=== PATIENT | male | born 1960 | race Caucasian/White ===

== ENCOUNTER 2017-07-01 15:02 | Observation (INO) | payer MEDICAID ==
[~2017-07-01] VITALS: Ht 177.8 cm; Wt 136.1 kg
[~2017-07-01 15:02] MED LIST: CYCL10TA9 PO; METO50TA7 PO; NAPR-243 PO
[2017-07-01] MEDS ORDERED: NS IV 1000 ML 1,000 ML IV SCH (15:30)
--- NOTE | 2017-07-01 15:39 | ED Psychosocial ---
General Chief Complaint: Substance Abuse Stated Complaint: DETOX Nursing Triage Note: Pt presents obviously intoxicated. Family with him for treatment. Pt obnoxious, staggering, and unable to bear weight. Source: patient, family Exam Limitations: intoxication History of Present Illness Date Seen by Provider: Jul 01, 2017 Time Seen by Provider: 15:33 Initial Comments This 57-year-old white male presents in a markedly intoxicated state accompanied by his family. The patient has been drinking heavily for the last 5 days. Patient has a long-standing history of alcohol and narcotic drug abuse. Patient's family believe the patient needs treatment and a hospitalized environment for his addictions. Patient is markedly intoxicated. His speech is difficult to understand as it is slurred. The patient behaves in an aggressive fashion without provocation. The patient has agreed to initial evaluation in the emergency department. Allergies and Home Medications Allergies Coded Allergies: No Known Drug Allergies (Unverified , 09/16/11) Home Medications Cyclobenzaprine Hcl 10 Mg Tablet, 1 EACH PO BID Prescribed by: BRITTANY SMITH on 09/16/11 1000 Metoprolol Succinate 50 Mg Tab.sr.24h, 1 EACH PO DAILY Prescribed by: BRITTANY SMITH on 09/16/11 1059 Naproxen 500 Mg Tablet, 1 EACH PO BID - TID PRN Prescribed by: BRITTANY SMITH on 09/16/11 1000 Patient Home Medication List Home Medication List Reviewed: Yes Constitutional: No chills, No fever EENTM: No hearing loss, No eye pain, No nose pain Respiratory: No cough, No short of breath Cardiovascular: No chest pain, No edema, No palpitations, No syncope Gastrointestinal: No abdominal pain, No hematemesis, No vomiting Genitourinary: no symptoms reported Musculoskeletal: no symptoms reported Skin: no symptoms reported, other (patient has multiple abrasions on his extremities. The family states this is due to his frequent falls. The patient had a fall in the emergency department for any was trying to use his bed.) Psychiatric/Neurological: See HPI, Weakness (patient also has some weakness in his lower extremities from previous disc disease and past back surgery.) Past Mvozsgc-Bipnom-Rwsvcf Hx Patient Social History Alcohol Use: Regular Use Alcohol Beverage of Choice: Beer Recreational Drug Use: No Smoking Status: Current Everyday Smoker Recent Foreign Travel: No Contact w/Someone Who Travel: No Recent Infectious Disease Expo: No Family Medical History Reviewed Nursing Family Hx Physical Exam Vital Signs Vital Signs - First Documented 07/01/17 15:16 Temp 95.9 Pulse 110 Resp 20 B/P (MAP) 177/107 (130) Pulse Ox 94 O2 Delivery Room Air Capillary Refill : Less Than 3 Seconds General Appearance: obese HEENT: normal ENT inspection Neck: normal inspection Respiratory: lungs clear Cardiovascular: regular rate, rhythm Gastrointestinal: normal bowel sounds, non tender Genital/Rectal: normal rectal tone Extremities: non-tender Neurologic/Psychiatric: no motor/sensory deficits, alert, normal mood/affect Appearance/Memory: disheveled, other (patient is markedly intoxicated. Patient is cursing and acting out against the staff.) Thoughts/Hallucinations: no apparent hallucination Skin: normal color, warm/dry Progress/Results/Core Measures Lab Results Laboratory Tests Test 07/01/17 16:10 07/01/17 16:15 Range/Units Urine Color YELLOW Urine Clarity CLEAR Urine pH 6 5-9 Urine Specific [place] 1.010 L 1.016-1.022 Urine Protein 1+ H NEGATIVE Urine Glucose (UA) NEGATIVE NEGATIVE Urine Ketones NEGATIVE NEGATIVE Urine Nitrite NEGATIVE NEGATIVE Urine Bilirubin NEGATIVE NEGATIVE Urine Urobilinogen NORMAL NORMAL MG/DL Urine Leukocyte Esterase 2+ H NEGATIVE Urine RBC (Auto) NEGATIVE NEGATIVE Urine Opiates Screen POSITIVE H NEGATIVE Urine Oxycodone Screen NEGATIVE NEGATIVE Urine Methadone Screen NEGATIVE NEGATIVE Urine Propoxyphene Screen NEGATIVE NEGATIVE Urine Barbiturates Screen NEGATIVE NEGATIVE Ur Tricyclic Antidepressants Screen NEGATIVE NEGATIVE Urine Phencyclidine Screen NEGATIVE NEGATIVE Urine Amphetamines Screen NEGATIVE NEGATIVE Urine Methamphetamines Screen NEGATIVE NEGATIVE Urine Benzodiazepines Screen NEGATIVE NEGATIVE Urine Cocaine Screen NEGATIVE NEGATIVE Urine Cannabinoids Screen POSITIVE H NEGATIVE White Blood Count 5.0 4.3-11.0 10^3/uL Red Blood Count 5.12 4.35-5.85 10^6/uL Hemoglobin 17.3 13.3-17.7 G/DL Hematocrit 50 40-54 % Mean Corpuscular Volume 98 80-99 FL Mean Corpuscular Hemoglobin 34 25-34 PG Mean Corpuscular Hemoglobin Concent 35 32-36 G/DL Red Cell Distribution Width 13.7 10.0-14.5 % Platelet Count 191 130-400 10^3/uL Mean Platelet Volume 8.5 7.4-10.4 FL Neutrophils (%) (Auto) 62 42-75 % Lymphocytes (%) (Auto) 24 12-44 % Monocytes (%) (Auto) 13 H 0-12 % Eosinophils (%) (Auto) 0 0-10 % Basophils (%) (Auto) 0 0-10 % Neutrophils # (Auto) 3.1 1.8-7.8 X 10^3 Lymphocytes # (Auto) 1.2 1.0-4.0 X 10^3 Monocytes # (Auto) 0.7 0.0-1.0 X 10^3 Eosinophils # (Auto) 0.0 0.0-0.3 10^3/uL Basophils # (Auto) 0.0 0.0-0.1 10^3/uL Sodium Level 139 135-145 MMOL/L Potassium Level 4.2 3.6-5.0 MMOL/L Chloride Level 105 98-107 MMOL/L Carbon Dioxide Level 20 L 21-32 MMOL/L Anion Gap 14 5-14 MMOL/L Blood Urea Nitrogen 6 L 7-18 MG/DL Creatinine 0.90 0.60-1.30 MG/DL Estimat Glomerular Filtration Rate > 60 BUN/Creatinine Ratio 7 Glucose Level 120 H 70-105 MG/DL Calcium Level 8.9 8.5-10.1 MG/DL Total Bilirubin 0.4 0.1-1.0 MG/DL Aspartate Amino Transf (AST/SGOT) 42 H 5-34 U/L Alanine Aminotransferase (ALT/SGPT) 30 0-55 U/L Alkaline Phosphatase 151 H 40-136 U/L Total Protein 7.5 6.4-8.2 GM/DL Albumin 4.2 3.2-4.5 GM/DL Salicylates Level < 5.0 L 5.0-20.0 MG/DL Acetaminophen Level < 10 L 10-30 UG/ML Serum Alcohol 383 *H <10 MG/DL My Orders Orders - MESSI BOWMAN MD Cbc With Automated Diff (07/01/17 15:22) Comprehensive Metabolic Panel (07/01/17 15:) Alcohol (07/01/17 15:22) Salicylate (07/01/17 15:22) Acetaminophen (07/01/17 15:22) Drug Screen Stat (Urine) (07/01/17 15:) Urinalysis Dipstick Only (07/01/17 15:) Ekg Tracing (4/13/18 15:22) Chest 1 View, Ap/Pa Only (07/01/17 15:22) Ns Iv 1000 Ml (Sodium Chloride 0.9%) (07/01/17 15:30) Vital Signs/I&O 07/01/17 15:16 Temp 95.9 Pulse 110 Resp 20 B/P (MAP) 177/107 (130) Pulse Ox 94 O2 Delivery Room Air Blood Pressure Mean: 130 Progress Note : Time: 17:01 Progress Note Patient's ETOH was approx 350. The patient was unable to walk or stand. Dr. Smith was kind enough to admit the patient for detox. A bed was arranged with a sitter. Ativan was ordered for anticipated agitation. Departure Communication (Admissions) Time/Spoke to Admitting Phy: 17:05 Dr. Smith Impression Primary Impression: Alcohol abuse Disposition: ADMITTED INPATIENT Condition: Unchanged Admissions Decision to Admit Reason: Admit from ER (General) Decision to Admit/Date: Jul 01, 2017 Time/Decision to Admit Time: 17:04 Departure-Patient Inst. Referrals: NO,LOCAL PHYSICIAN (PCP/Family) Primary Care Physician Patient Instructions: ALCOHOL AND SUBSTANCE ABUSE MESSI BOWMAN MD Jul 01, 2017 15:39
--- NOTE | 2017-07-01 15:56 | Diagnostic Imaging Report ---
INDICATION: Detoxification. Frontal chest obtained at 3:48 p.m. FINDINGS: There is cardiomegaly with tortuous aorta. There is no significant infiltrate. There is no pneumothorax or pleural fluid. There is poor inspiration. IMPRESSION: Cardiomegaly and tortuous aorta with no focal infiltrate or pneumothorax or pleural fluid. Dictated by: Dictated on workstation # [id number]
[2017-07-01 16:24] LABS: BILIRUBIN,URINE NEGATIVE (NEGATIVE); CLARITY,URINE CLEAR; COLOR,URINE YELLOW; GLUCOSE, URINE (UA) NEGATIVE (NEGATIVE); KETONES,URINE NEGATIVE (NEGATIVE); LEUKOCYTE ESTERASE ,URINE 2+ (NEGATIVE); NITRITE,URINE NEGATIVE (NEGATIVE); PH,URINE 6 (5-9); PROTEIN,URINE 1+ (NEGATIVE); UROBILINOGEN,URINE NORMAL (NORMAL)
[2017-07-01 16:28] LABS: BASOPHILS % (AUTO) 0 % (0-10); EOSINOPHILS % (AUTO) 0 % (0-10); HEMATOCRIT 50 % (40-54); HEMOGLOBIN 17.3 G/DL (13.3-17.7); LYMPHOCYTES # (AUTO) 1.2 X 10^3 (1.0-4.0); LYMPHOCYTES % (AUTO) 24 % (12-44); MEAN CORPUSCULAR HEMOGLOBIN 34 PG (25-34); MEAN CORPUSCULAR HGB CONC 35 G/DL (32-36); MEAN CORPUSCULAR VOLUME 98 FL (80-99); MEAN PLATELET VOLUME 8.5 FL (7.4-10.4); MONOCYTES # (AUTO) 0.7 X 10^3 (0.0-1.0); MONOCYTES % (AUTO) 13 % (0-12); NEUTROPHILS # (AUTO) 3.1 X 10^3 (1.8-7.8); NEUTROPHILS % (AUTO) 62 % (42-75); PLATELET COUNT 191 10^3/uL (130-400); RED BLOOD COUNT 5.12 10^6/uL (4.35-5.85); RED CELL DISTRIBUTION WIDTH 13.7 % (10.0-14.5)
[2017-07-01 16:39] LABS: AMPHETAMINE SCREEN, URINE NEGATIVE (NEGATIVE); BARBITURATE SCREEN URINE NEGATIVE (NEGATIVE); BENZODIAZEPINES SCREEN URINE NEGATIVE (NEGATIVE); CANNABINOID SCREEN, URINE POSITIVE (NEGATIVE); COCAINE SCREEN URINE NEGATIVE (NEGATIVE); METHADONE STAT NEGATIVE (NEGATIVE); METHAMPHETAMINE SCREEN URINE S NEGATIVE (NEGATIVE); OPIATE SCREEN URINE POSITIVE (NEGATIVE); OXYCODONE STAT NEGATIVE (NEGATIVE); PROPOXYPHENE STAT NEGATIVE (NEGATIVE); TRICYCLIC ANTIDEPRESSANTS SCRE NEGATIVE (NEGATIVE)
[2017-07-01 16:45] LABS: ALANINE AMINOTRANSFERASE 30 U/L (0-55); ALBUMIN 4.2 GM/DL (3.2-4.5); ALKALINE PHOSPHATASE 151 U/L (40-136); BILIRUBIN,TOTAL 0.4 MG/DL (0.1-1.0); BUN/CREATININE RATIO 7; CALCIUM 8.9 MG/DL (8.5-10.1); CARBON DIOXIDE 20 MMOL/L (21-32); CHLORIDE 105 MMOL/L (98-107); GFR ESTIMATED > 60; GLUCOSE 120 MG/DL (70-105); POTASSIUM 4.2 MMOL/L (3.6-5.0); SALICYLATE < 5.0 MG/DL (5.0-20.0); SODIUM 139 MMOL/L (135-145); TOTAL PROTEIN 7.5 GM/DL (6.4-8.2)
[2017-07-01 16:46] LABS: ACETAMINOPHEN < 10 UG/ML (10-30)
[2017-07-01 18:00] VITALS: BP 182/115
[2017-07-01] MEDS ORDERED: CATHETER FLUSH 10 ML SYR IV PRN (18:15)
[2017-07-01] MEDS: LORazepam INJ 2 MG/ML (ATIVAN) VIAL IV PRN ×3 (18:20→23:32)
[2017-07-01 20:00] VITALS: BP 173/111
[2017-07-01 20:05] VITALS: BP 175/98
[2017-07-01 20:17] VITALS: BP 182/115
[2017-07-01] MEDS ORDERED: meTOproloL SUCCINATE 50 MG (TOPROL XL) TAB PO ONE (20:20)
[2017-07-01] MEDS ORDERED: ONDANSETRON 4 MG (ZOFRAN) ORAL DISSOLVE TAB ONE (20:20)
[2017-07-01] MEDS ORDERED: ONDANSETRON 8 MG (ZOFRAN) ORAL DISSOLVE TAB PO PRN (20:30)
[2017-07-01] MEDS ORDERED: RT-ALBUTEROL SULF 2.5 MG/3 ML PRE-MIX VIAL INH PRN (20:30)
[2017-07-01] MEDS ORDERED: meTOproloL SUCCINATE 50 MG (TOPROL XL) TAB PO NR (20:30)
[2017-07-01] MEDS: CATHETER FLUSH 10 ML SYR IV SCH (20:35)
[2017-07-02 00:02] VITALS: BP 163/102
[2017-07-02] MEDS: LORazepam INJ 2 MG/ML (ATIVAN) VIAL IV PRN ×6 (02:09→13:40)
[2017-07-02 04:00] VITALS: BP 163/99
[2017-07-02] MEDS: CATHETER FLUSH 10 ML SYR IV SCH ×2 (05:07→11:00)
[2017-07-02 06:42] LABS: BASOPHILS % (AUTO) 0 % (0-10); EOSINOPHILS % (AUTO) 0 % (0-10); HEMATOCRIT 44 % (40-54); HEMOGLOBIN 15.4 G/DL (13.3-17.7); LYMPHOCYTES % (AUTO) 18 % (12-44); MEAN CORPUSCULAR HEMOGLOBIN 34 PG (25-34); MEAN CORPUSCULAR HGB CONC 35 G/DL (32-36); MEAN CORPUSCULAR VOLUME 98 FL (80-99); MEAN PLATELET VOLUME 8.4 FL (7.4-10.4); MONOCYTES # (AUTO) 0.8 X 10^3 (0.0-1.0); MONOCYTES % (AUTO) 14 % (0-12); NEUTROPHILS # (AUTO) 3.8 X 10^3 (1.8-7.8); NEUTROPHILS % (AUTO) 68 % (42-75); PLATELET COUNT 177 10^3/uL (130-400); RED CELL DISTRIBUTION WIDTH 13.3 % (10.0-14.5); WHITE BLOOD COUNT 5.6 10^3/uL (4.3-11.0)
[2017-07-02 07:08] LABS: ALANINE AMINOTRANSFERASE 31 U/L (0-55); ALBUMIN 3.8 GM/DL (3.2-4.5); ALKALINE PHOSPHATASE 126 U/L (40-136); BILIRUBIN,TOTAL 0.7 MG/DL (0.1-1.0); BUN/CREATININE RATIO 7; CALCIUM 8.4 MG/DL (8.5-10.1); CARBON DIOXIDE 20 MMOL/L (21-32); CHLORIDE 102 MMOL/L (98-107); CREATININE SERUM 0.82 MG/DL (0.60-1.30); GFR ESTIMATED > 60; GLUCOSE 101 MG/DL (70-105); SODIUM 136 MMOL/L (135-145); TOTAL PROTEIN 6.5 GM/DL (6.4-8.2)
[2017-07-02 08:00] VITALS: BP 176/106
[2017-07-02] MEDS ORDERED: meTOproloL SUCCINATE 50 MG (TOPROL XL) TAB PO SCH (09:00)
[2017-07-02 12:00] VITALS: BP 177/105
[2017-07-02] MEDS ORDERED: morphine ER 30 MG (MS CONTIN) TAB PO NR (13:00)
--- NOTE | 2017-07-02 13:00 | Short Stay Summary-Hospitalist ---
History of Present Illness HPI/Chief Complaint The patient is a 57-year-old white male who presented to the emergency room yesterday severely intoxicated. He was brought by family. It was stated that he had been drinking heavily for at least the last 2 years. This included at least a sixpack of TALL beers daily plus hard liquor. His glass edger states that over the past 2 weeks he has greatly increased his intake of beer and liquor. At the emergency room yesterday he had a blood alcohol of 383. He is sober today. In addition to this he states that he takes morphine 30 mg twice daily and oxycodone immediate release 15 mg 2-4 times daily. This is apparently supplied by a pain specialist in [facility]. He reports that he has had 3 previous back surgeries and chronic pain. Date Seen 07/02/17 Time Seen by Provider: 12:55 Attending Physician Johny Smith MD PCP No,Local Physician Referring Physician Date of Admission Jul 01, 2017 at 17:07 Home Medications & Allergies Home Medications Reviewed patient Home Medication Reconciliation performed by pharmacy medication reconciliations [employer] technician and/or nursing. Patients Allergies have been reviewed. Allergies Allergies Coded Allergies No Known Drug Allergies (Unverified07/01/17) Past Kgytbxp-Tgxuxa-Ivxpai Hx Past Med/Social Hx: Reviewed Nursing Past Med/Soc Hx Patient Social History Marrital Status: Employed/Student: unemployed Alcohol Use: Regular Use Number of Drinks Today: 10 Alcohol Beverage of Choice: Beer, Whiskey Recreational Drug Use: No Smoking Status: Current Everyday Smoker Type Used: Cigarettes Physical Abuse Screen: No Sexual Abuse: No Recent Foreign Travel: No Contact w/other who traveled: No Recent Infectious Disease Expo: No Seasonal Allergies Seasonal Allergies: No Past Medical History Musculoskeletal: Chronic Back Pain HEENT: Cataract Psychosocial: Sleep Difficulties, Anxiety, Depression History of Blood Disorders: No Family History Reviewed Nursing Family Hx Review of Systems Constitutional: see HPI EENTM: no symptoms reported Respiratory: no symptoms reported Cardiovascular: no symptoms reported Gastrointestinal: no symptoms reported Genitourinary: no symptoms reported Musculoskeletal: back pain (chronic with 3 previous back surgeries) Psychiatric/Neurological: No Symptoms Reported Physical Exam Physical Exam Vital Signs Vital Signs - First Documented 07/01/17 07/01/17 15:16 20:17 Temp 95.9 Pulse 110 Resp 20 B/P (MAP) 177/107 (130) Pulse Ox 94 O2 Delivery Room Air FiO2 21 Capillary Refill : Less Than 3 SecondsLess Than 3 Seconds General Appearance: Other (obese and heavily tattooed) Eyes: Bilateral Eye Normal Inspection HEENT: Normal ENT Inspection Neck: Normal Inspection Respiratory: Chest Non Tender, Lungs Clear, Normal Breath Sounds, No Accessory Muscle Use, No Respiratory Distress Cardiovascular: Regular Rate, Rhythm, No Edema, No Gallop Gastrointestinal: Other (Central obesity) Back: Other (lumbar vertically oriented scarring) Neurologic/Psychiatric: Alert, Oriented x3, No Motor/Sensory Deficits Skin: Normal Color, Warm/Dry Lymphatic: No Adenopathy Results Results/Procedures Labs Laboratory Tests 07/01/17 16:15 07/02/17 06:30 Patient resulted labs reviewed. Short Stay Diagnosis Discharge Diagnosis-Short Stay Admission Diagnosis Acute and severe alcohol intoxication. 2.chronic alcoholism. 3.chronic back pain with opioid dependency. 4.obesity 5.hypertension Final Discharge Diagnosis Acute and severe alcohol intoxication. 2.chronic alcoholism. 3.chronic back pain and opioid dependency. 4.obesity. 5.hypertension Conclusion Plan Discharge. Recommend [facility] for outpatient alcohol programs. Medications as on your discharge sequence. Establish local provider for adjustment of antihypertensive therapy Clinical Quality Measures DVT/VTE Risk/Contraindication: Risk Factor Score Per Nursin RFS Level Per Nursing on Admit: 4+=Very High JOHNY SMITH MD Jul 02, 2017 13:00
--- NOTE | 2017-07-02 13:53 | Discharge Instructions ---
Discharge Instructions Patient Instructions Patient Instructions: Establish with local provider. Your blood pressure appears to require medication adjustment. Call [facility] to establish outpatient drug and alcohol services. Stop and avoid further alcohol abuse Activity & Diet Discharge Diet: No Restrictions BRITTANY SMITH MD Jul 02, 2017 13:53
[2017-07-02 14:05] VITALS: BP 177/105
--- OUTSIDE RECORDS SUMMARY | 2017-07-03 07:59 | XMS REPORT | Continuity of Care Document ---
Author Author Formerly [facility], [facility] of [facility] Address Unknown Phone Unavailable Allergies Active Description Code Type Severity Reaction Onset Reported/Identified Relationship to Patient Clinical Status Yes NKDA N/A N/A Yes traMADOL Drug Allergy N/A N/A 07/15/2010 Yes No Known Drug Allergies [id number] Drug Allergy Unknown N/A 09/16/2011 Yes tramadol NOCHK 2 Pruritus 08/06/2014 Yes baclofen Drug Allergy Unknown N/A 06/04/2015 Yes Neurontin Drug Allergy Unknown N/A 06/04/2015 Yes traMADol Drug Allergy Unknown N/A 06/04/2015 Yes FLEXERIL Drug Allergy Unknown N/A 12/17/2015 Medications Medication Packaging Start Date Stop Date Route Dosage Sig oxyCODONE 20 mg tablet Tablet 11/18 20 mg take 1 ( one) Tablet by Oral route two times per day morphine ER 100 mg tablet,extended release 11/18/2014 100 mg take 1 (one) by Oral route two times per day diazepam 10 mg tablet Tablet 2014 10 mg take 1 ( one) Tablet by Oral route three times per day atenolol 50 mg tablet Tablet 2014 50 mg take 1 ( one) Tablet by Oral route daily amLODIPine 10 mg tablet Tablet 10 mg take 1 (one) Tablet by Oral route daily morphine ER 100 mg tablet,extended release 06/04/2015 12/17/2015 100 mg take 1 (one) by Oral route three times per day Valium 10 mg tablet Tablet 201512/17/2015 10 mg take 1 (one) Tablet by Oral route three times per day * DONT RECONCILE--CHANGE PENDING EA 07/15/2015 07/18/2015 PO PRN LACTATED RINGERS 1000 ML IV SOLN BAG 07/18/2015 07/18/2015 IV ONCE ceFAZolin 1GM VIAL VL 07/18/2015 07/18/2015 IVP ONCE LACTATED RINGERS 1000 ML IV SOLN BAG 07/18/2015 07/18/2015 IV PRE-OP ceFAZolin 1GM VIAL VL 07/18/2015 07/18/2015 IV PRE-OP LIDOCAINE 2% SYRINGE [100MG/5ML] SYR 07/18/2015 07/18/2015 IVP ONCE DEXAMETHASONE 10MG/1ML VIAL VL 07/18/2015 IVP ONCE PROPOFOL 200MG/20ML INJ VL 201507/18/2015 IVP ONCE ONDANSETRON 4MG/2ML INJ VL 201507/18/2015 IVP ONCE ROCURONIUM 50MG/5ML INJ VL 201507/18/2015 IVP ONCE SODIUM CHLORIDE PF 0.9% 10ML INJ VL 07/18/2015 07/18/2015 IVP ONCE LACTATED RINGERS 1000 ML IV SOLN BAG 07/18/2015 07/18/2015 IV ONCE THROMBIN 5000 UNIT VIAL VL 201507/18/2015 TOP ONCE SODIUM CHLORIDE 0.9% 1000ML IRRIG SOLN EA 07/18/2015 07/18/2015 IRR ONCE ceFAZolin 1GM VIAL VL 07/18/2015 07/18/2015 IVP ONCE BUPIVACAINE W/ EPI 0.25% INJ [10 ML] VL 07/18/2015 07/18/2015 ID ONCE BACITRACIN 500 UNIT/GM OINT [0.9GM U.D.] PKT 07/18/2015 07/18/2015 TOP ONCE * Ready to Reconcile EA 07/18/2015 07/18/2015 PO ASDIR FAMOTIDINE 20MG/2ML INJ VL 201507/18/2015 IV PRE -OP MIDAZOLAM 2MG/2ML INJ VL 201507/18/2015 IV PRE -OP fentaNYL 100 MCG/2ML INJ AMP 201507/18/2015 IV PRE -OP fentaNYL 250 MCG/5ML INJ AMP 201507/18/2015 IV ONCE SODIUM CHLORIDE 0.9% 10ML FLUSH SYRINGE SYR 07/18/2015 07/17/2016 IVP BID&0900,2100 *MORPHINE ER 100MG TABLET TAB 07/1707/18/2015 PO TID&0900,1500,2200 LIDOCAINE 5% PATCH PAT 07/18/2015 07/17/2016 TD Q12H& 0900,2100 POLYETHYLENE GLYCOL 17GM PKT PKT 07/17/2016 PO QD&0900 DOCUSATE SODIUM 100MG CAPSULE CAP 07/18/2015 07/17/2016 PO BID&0900,2100 *DIAZEPAM 5MG TABLET TAB 201507/18/2015 PO TID &0900,1500,2200 hydroMORPHONE 2MG/1ML INJ ML 07/1707/18/2015 IV ONCE SODIUM CHLORIDE 0.9% W/ KCL 20MEQ 1000ML IV SOLN BAG 07/18/2015 07/20/2015 IV 100ML/HR MAGNESIUM HYDROXIDE 2400MG/30ML SUSP EA 07/18/2015 07/17/2016 PO PRN BISACODYL 10MG SUPPOS. SUP 201507/17/2016 MD* PRN LORazepam 0.5MG TABLET TAB 201507/17/2016 PO Q4HPRN FAMOTIDINE 20 MG TABLET TAB 201507/17/2016 PO BIDPRNN BISACODYL 5MG TABLET TAB 201507/17/2016 PO PRN MORPHINE 30 MG / 30 ML RESUME WRITER SYRINGE SYR 07/18/2015 07/20/2015 IV PRN METOCLOPRAMIDE 10MG/2ML INJ VL 07/17/2016 IVP [id number] SODIUM CHLORIDE 0.9% 10ML FLUSH SYRINGE SYR 07/18/2015 07/17/2016 IVP PRN SODIUM CHLORIDE 0.9% 5ML FLUSH SYRINGE SYR 07/18/2015 07/17/2016 IVP PRN CEPACOL (BENZOCAINE/MENTHOL) LOZENGE ADAN 07/18/2015 07/17/2016 BC PRN TEMAZEPAM 15MG CAPSULE CAP 201507/17/2016 PO HSPRNI&2200 diphenhydrAMINE 50MG/1ML INJ VL 07/17/2016 IVP Q6HPRN ACETAMINOPHEN 325MG TABLET TAB 07/17/2016 PO Q4HPRN PHENOL 1.4% THROAT SPRAY [118ML] EA 07/18/2015 07/17/2016 PO PRN ROCURONIUM 50MG/5ML INJ VL 201507/18/2015 IVP ONCE SUCCINYLCHOLINE 100MG/5ML SYRINGE [COMPOUND] DOS 07/18/2015 07/18/2015 IVP ONCE EPHEDRINE 20MG/2ML SYRINGE [COMPOUND] DOS 07/18/2015 07/18/2015 IVP ONCE METOCLOPRAMIDE 10MG TABLET TAB 07/19/2015 PO Q6H&0000,0600,1200,1800 *ATENOLOL 100MG TABLET TAB 201507/17/2016 PO BID &0900,2100 *oxyCODONE IR 30MG TABLET TAB 07/1707/17/2016 PO QIDPRN *amLODIPine 10MG TABLET TAB 201507/17/2016 PO QD& 0900 *MORPHINE ER 100MG TABLET TAB 07/1707/17/2016 PO TID&0900,1500,2200 *traZODone 100MG TABLET DOS 201507/17/2016 PO HS& 2200 *DIAZEPAM 5MG TABLET TAB 201507/17/2016 PO TID &0900,1500,2200 THROMBIN 5000 UNIT VIAL VL 201507/18/2015 TOP ONCE hydroMORPHONE 2MG/1ML INJ ML 07/1707/18/2015 IV POST-OP *oxyCODONE IR 30MG TABLET TAB 07/1707/18/2015 PO QIDPRN ceFAZolin 1GM VIAL 07/18/2015 07/19/2015 IVP Q8H&0000 ,0800,1600 METOCLOPRAMIDE 10MG TABLET TAB 07/18/2016 PO [id number] MAGNESIUM HYDROX/AL HYDROX/SIMETH 30ML SUSP EA 07/20/2015 07/19/2016 PO PRN MAGNESIUM HYDROX/AL HYDROX/SIMETH 30ML SUSP EA 07/20/2015 07/20/2015 PO ONCE *amLODIPine 10MG TABLET TAB 201507/18/2015 PO QD& 0900 *MORPHINE ER 100MG TABLET TAB 08/1308/13/2016 PO TID&0900,1500,2200 *MULTIVITAMIN TABLET TAB 201508/13/2016 PO QD& 0900 *DIAZEPAM 5MG TABLET TAB 201508/13/2016 PO TID &0900,1500,2200 *ATENOLOL 50MG TABLET TAB 201507/18/2015 PO BID &0900,2100 *oxyCODONE IR 30MG TABLET TAB 08/1308/13/2016 PO QIDPRN *traZODone 50 MG TABLET TAB 201507/18/2015 PO HS& 2200 *traZODone 100MG TABLET DOS 201507/18/2015 PO HS& 2200 *ATENOLOL 100MG TABLET TAB 201507/18/2015 PO BID &0900,2100 traZODone 100 mg tablet Tablet 100 mg take 1 (one) Tablet by Oral route at bedtime Problems Date Dx Coded Attending Type Code Diagnosis Diagnosed By 07/18/2008 NATAN GUAN APRN N 300.4 DYSTHYMIC DISORDER 07/18/2008 NATAN GUAN APRN N 401.1 ESSENTIAL HYPERTENSION BENIGN 07/18/2008 NATAN GUAN APRN N 724.5 Backache 03/10/2009 NATAN GUAN APRN N 959.7 INJURY OF LOWER EXTREMITY KNEE 06/15/2010 NATAN GUAN APRN N 607.89 Other Specified Disorders Of Penis 09/10/2010 NATAN GUAN APRN N 704.8 Folliculitis 09/17/2010 NATAN GUAN APRN N 465.9 Upper Respiratory Infection 09/17/2010 NATAN GUAN APRN N 496 CHRONIC OBSTRUCTIVE PULMONARY DISEASE 09/17/2010 NATAN GUAN APRN N 604.90 Orchitis With Epididymitis 12/28/2010 NATAN GUAN APRN N V04.81 FLU DX (3 YRS AND ABOVE, IM) 03/19/2011 NATAN GUAN APRN N 604.90 ORCHITIS WITH EPIDIDYMITIS 09/16/2011 Ot 401.9 09/16/2011 Ot 724.2 12/03/2013 NATAN GUAN APRN N 719.06 EFFUSION OF LOWER LEG JOINT 12/03/2013 NATAN GUAN APRN N 719.46 PAIN IN JOINT INVOLVING LOWER LEG 04/10/2014 OTHER, UNLISTED Ot V43.65 04/10/2014 OTHER, UNLISTED Ot V54.81 04/10/2014 OTHER, UNLISTED Ot V57.1 04/10/2014 OTHER, UNLISTED Ot V43.65 04/10/2014 OTHER, UNLISTED Ot V54.81 04/10/2014 OTHER, UNLISTED Ot V57.1 04/19/2014 RICHARDSON SHANNON, SIMON Virgen Ot V58.61 04/19/2014 RICHARDSON SHANNON, SIMON Virgen Ot V58.83 04/20/2014 LIEBHAVESH SHANNON, SIMON Virgen Ot V58.61 04/20/2014 LIEBHAVESH SHANNON, SIMON Virgen Ot V58.83 04/20/2014 RICHARDSON SHANNON, SIMON Virgen Ot V58.61 04/20/2014 RICHARDSON SHANNON, SIMON Virgen Ot V58.83 04/23/2014 OTHER, UNLISTED Ot V43.65 04/23/2014 OTHER, UNLISTED Ot V54.81 04/23/2014 OTHER, UNLISTED Ot V57.1 04/25/2014 RICHARDSON SHANNON, SIMON Virgen Ot V58.61 04/25/2014 RICHARDSON SHANNON, SIMON Virgen Ot V58.83 04/29/2014 OTHER, UNLISTED Ot V43.65 04/29/2014 OTHER, UNLISTED Ot V54.81 04/29/2014 OTHER, UNLISTED Ot V57.1 04/29/2014 OTHER, UNLISTED Ot V43.65 04/29/2014 OTHER, UNLISTED Ot V54.81 04/29/2014 OTHER, UNLISTED Ot V57.1 04/29/2014 OTHER, UNLISTED Ot V43.65 04/29/2014 OTHER, UNLISTED Ot V54.81 04/29/2014 OTHER, UNLISTED Ot V57.1 04/30/2014 OTHER, UNLISTED Ot V43.65 KNEE JOINT REPLACEMENT STATUS 04/30/2014 OTHER, UNLISTED Ot V54.81 AFTERCARE FOLLOWING JOINT REPLACEMENT 04/30/2014 OTHER, UNLISTED Ot V57.1 PHYSICAL THERAPY NEC 08/09/2014 DF 305.1 08/09/2014 DF 311 08/09/2014 DF 327.23 08/09/2014 DF 338.29 08/09/2014 DF 401.9 08/09/2014 DF 496 08/09/2014 DF 722.10 08/09/2014 DF 724.03 07/20/2015 MICHELLE WEBER F17.210 Nicotine dependence, cigarettes, uncompl 07/20/2015 WEBERMICHELLE G40.909 Epilepsy, unspecified, not intractable, 07/20/2015 ENID MICHELLE CUETO G43.909 Migraine, unspecified, not intractable, 07/20/2015 WEBERMICHELLE G47.33 Obstructive sleep apnea (adult) (pediatr 07/20/2015 MICHELLE WEBER DF G89.29 Other chronic pain 07/20/2015 MICHELLE WEBER I10 Essential (primary) hypertension 07/20/2015 ENID MICHELLE DF M85.80 Other specified disorders of bone densit 07/20/2015 ENID MICHELLE CUETO M96.0 Pseudarthrosis after fusion or arthrodes 07/20/2015 MICHELLE WEBER T85.618A Breakdown (mechanical) of other specifie 07/20/2015 WEBER, MICHELLE CUETO Z79.899 Other buttermaker continuous churn (current) drug therapy 08/19/2015 M96.0 Pseudarthrosis after fusion or arthrodesis Shant Vargas 08/19/2015 T84.296A Other mechanical complication of internal fixation device of vertebrae, initial encounter Shant Vargas 08/19/2015 Z98.1 Arthrodesis status Shant Vargas 12/16/2015 Michelle Weber M96.0 Pseudarthrosis after fusion or arthrodesis Michelle Weber 12/16/2015 Michelle Weber T84.498A Other mechanical complication of other internal orthopedic devices, implants and grafts, initial encounter Michelle Weber 04/16/2016 Michelle Weber M96.0 Pseudarthrosis after fusion or arthrodesis Michelle Weber 04/16/2016 Michelle Weber T84.498A Other mechanical complication of other internal orthopedic devices, implants and grafts, initial encounter Michelle Weber 07/01/2017 SIMON BAI MD Ot V58.61 ANTICOAGULANTS,LT,CURRENT USE 07/01/2017 SIMON BAI MD Ot V58.83 ENCOUNTER FOR THERAPEUTIC DRUG MONITORIN 07/01/2017 SIMON BAI MD Ot V58.61 ANTICOAGULANTS,LT,CURRENT USE 07/01/2017 SIMON BAI MD Ot V58.83 ENCOUNTER FOR THERAPEUTIC DRUG MONITORIN 07/01/2017 SIMON BAI MD Ot V58.61 ANTICOAGULANTS,LT,CURRENT USE 07/01/2017 SIMON BAI MD Ot V58.83 ENCOUNTER FOR THERAPEUTIC DRUG MONITORIN 07/01/2017 SIMON BAI MD Ot V58.61 ANTICOAGULANTS,LT,CURRENT USE 07/01/2017 SIMON BAI MD Ot V58.83 ENCOUNTER FOR THERAPEUTIC DRUG MONITORIN 07/01/2017 SIMON BAI MD Ot V58.61 ANTICOAGULANTS,LT,CURRENT USE 07/01/2017 SIMON BAI MD Ot V58.83 ENCOUNTER FOR THERAPEUTIC DRUG MONITORIN 07/01/2017 SIMON BAI MD Ot V58.61 ANTICOAGULANTS,LT,CURRENT USE 07/01/2017 SIMON BAI MD Ot V58.83 ENCOUNTER FOR THERAPEUTIC DRUG MONITORIN 07/01/2017 SIMON BAI MD Ot V58.61 ANTICOAGULANTS,LT,CURRENT USE 07/01/2017 SIMON BAI MD Ot V58.83 ENCOUNTER FOR THERAPEUTIC DRUG MONITORIN 07/01/2017 SIMON BAI MD Ot V58.61 ANTICOAGULANTS,LT,CURRENT USE 07/01/2017 SIMON BAI MD Ot V58.83 ENCOUNTER FOR THERAPEUTIC DRUG MONITORIN Procedures Code Description Performed By Performed On OrthopedJustyn Moore 12/03/2013 77.79 EXCISION OF OTHER BONE FOR GRAFT, EXCEPT ENID MICHELLE 08/06/2014 80.51 EXCISION OF INTERVERTEBRAL DISC WEBER MICHELLE 08/06/2014 81.07 LUMBAR AND LUMBOSACRAL FUSION OF THE POS MICHELLE WEBER 08/06/2014 81.37 REFUSION OF LUMBAR AND LUMBOSACRAL SPINE WEBER MICHELLE 08/06/2014 81.63 FUSION OR REFUSION OF 4-8 VERTEBRAE WEBERMICHELLE 08/06/2014 84.51 INSERTION OF INTERBODY SPINAL INFUSION D MICHELLE WEBER 08/06/2014 [id number] Removal of Internal Fixation Device from ENID MICHELLE 07/18/2015 [id number] Excision of Lumbar Vertebral Disc, Open WEBER MICHELLE 07/18/2015 [id number] Fusion of 2 or more Lumbar Vertebral Nilam ENIDMICHELLE 07/18/2015 04097 Arthrodesis, anterior interbody technique, including minimal diskectomy to prepare interspace (other Shant Vargas 09/08/2015 78478 Arthrodesis, anterior interbody technique, including minimal diskectomy to prepare interspace (other Shant Vargas 09/08/2015 63436 Application of intervertebral biomechanical device(s) (eg, sythentic cages, threaded bone dowmoira kauffman Brent A 09/08/2015 35285 Office Visit Focused Michelle Weber 12/16/2015 30529 Office Visit Focused Michelle Weber 12/30/2015 40472 Office Visit Expanded Michelle Weber 04/16/2016 [id number] Office Visit Expanded Michelle Weber 04/29/2016 Results There is no data. Encounters ACCT No. Visit Date/Time Discharge Status Pt. Type Provider Facility Loc./Unit Complaint [id number] 12/03/2013 08:17:00 12/03/2013 23:59:59 CLS Outpatient NATAN GUAN APRN N [id number] 09/08/2015 18:22:29 Document Registration [id number] 04/16/2016 14:32:11 04/16/2016 23:59:59 CLS Outpatient Michelle Weber [id number] 07/18/2015 06:19:00 07/20/2015 18:18:00 DIS 01 MICHELLE WEBER [facility] INPT NO KNOWN INJURY,pseudoarthrosis, hardware failure. [id number] 07/18/2015 08:22:26 07/18/2015 08:22:26 CAN Preadmit [id number] 08/06/2014 10:52:00 Document Registration [email or web address] 04/27/2014 04:21:15 ACT Document Registration [id number] 04/16/2014 12:45:00 04/30/2014 13:59:00 DIS Outpatient OTHER, UNLISTED Via [facility] REHAB RT TOTAL KNEE [id number] 04/08/2014 10:30:00 04/08/2014 23:59:59 CLS Outpatient SIMON BAI MD Via [facility] ANTICOAG THERAPY [id number] 04/04/2014 10:30:00 04/04/2014 23:59:59 CLS Outpatient SIMON BAI MD Via [facility] ANTICOAGULANT THERAPY [id number] 04/01/2014 08:15:00 04/01/2014 23:59:59 CLS Outpatient SIMON BAI MD Via [facility] ANTICOAG THERAPY [id number] 03/27/2014 12:45:00 03/27/2014 23:59:59 CLS Outpatient RICHARDSON SHANNON, SIMON Virgen Via [facility] ANTICOAG THERAPY [id number] 07/01/2017 17:07:00 ACT Inpatient BRITTANY SMITH MD Via [facility] 4TH ALCOHOL INTOXICATION. [id number] 09/16/2011 08:30:00 Document Registration
--- OUTSIDE RECORDS SUMMARY | 2017-07-03 08:17 | XMS REPORT | Continuity of Care Document ---
Author Author [facility] Address Unknown Phone Unavailable Allergies Active Description Code Type Severity Reaction Onset Reported/Identified Relationship to Patient Clinical Status Yes NKDA N/A N/A Yes traMADOL Drug Allergy N/A N/A 07/15/2010 Yes No Known Drug Allergies [id number] Drug Allergy Unknown N/A 09/16/2011 Yes tramadol [...] PO PRN BISACODYL 10MG SUPPOS. SUP 201507/17/2016 NH* PRN LORazepam 0.5MG TABLET TAB 201507/17/2016 PO Q4HPRN FAMOTIDINE 20 MG TABLET TAB 201507/17/2016 PO BIDPRNN BISACODYL 5MG TABLET TAB 201507/17/2016 PO PRN MORPHINE 30 MG / 30 ML CELL OPERATOR SYRINGE SYR 07/18/2015 07/20/2015 IV PRN METOCLOPRAMIDE 10MG/2ML INJ VL 07/17/2016 IVP [id number] SODIUM CHLORIDE 0.9% 10ML FLUSH SYRINGE SYR [...] ,0800,1600 METOCLOPRAMIDE 10MG TABLET TAB 07/18/2016 PO [id number] MAGNESIUM HYDROX/AL HYDROX/SIMETH 30ML SUSP EA 07/20/2015 [...] INTERBODY SPINAL INFUSION D MICHELLE WEBER 08/06/2014 [id number] Removal of Internal Fixation Device from ENID MICHELLE 07/18/2015 [id number] Excision of Lumbar Vertebral Disc, Open WEBER MICHELLE 07/18/2015 [id number] Fusion of 2 or more Lumbar Vertebral Nilam ENIDMICHELLE 07/18/2015 66688 Arthrodesis, anterior interbody technique, including minimal diskectomy to prepare interspace (other Shant Vargas 09/08/2015 56077 Arthrodesis, anterior interbody technique, including minimal diskectomy to prepare interspace (other Shant Vargas 09/08/2015 52294 Application of intervertebral biomechanical device(s) (eg, sythentic cages, threaded bone dowmoira kauffman Brent A 09/08/2015 25561 Office Visit Focused Michelle Weber 12/16/2015 44554 Office Visit Focused Michelle Weber 12/30/2015 52683 Office Visit Expanded Michelle Weber 04/16/2016 [id number] Office Visit Expanded Michelle Weber 04/29/2016 Results There is no data. Encounters ACCT No. Visit Date/Time Discharge Status Pt. Type Provider Facility Loc./Unit Complaint [id number] 12/03/2013 08:17:00 12/03/2013 23:59:59 CLS Outpatient NATAN GUAN APRN N [id number] 09/08/2015 18:22:29 Document Registration [id number] 04/16/2016 14:32:11 04/16/2016 23:59:59 CLS Outpatient Michelle Weber [id number] 07/18/2015 06:19:00 07/20/2015 18:18:00 DIS 01 MICHELLE WEBER [facility] INPT NO KNOWN INJURY,pseudoarthrosis, hardware failure. [id number] 07/18/2015 08:22:26 07/18/2015 08:22:26 CAN Preadmit [id number] 08/06/2014 10:52:00 Document Registration [email or web address] 04/27/2014 04:21:15 ACT Document Registration [id number] 04/16/2014 12:45:00 04/30/2014 13:59:00 DIS Outpatient OTHER, UNLISTED Via [facility] REHAB RT TOTAL KNEE [id number] 04/08/2014 10:30:00 04/08/2014 23:59:59 CLS Outpatient SIMON BAI MD Via [facility] ANTICOAG THERAPY [id number] 04/04/2014 10:30:00 04/04/2014 23:59:59 CLS Outpatient SIMON BAI MD Via [facility] ANTICOAGULANT THERAPY [id number] 04/01/2014 08:15:00 04/01/2014 23:59:59 CLS Outpatient SIMON BAI MD Via [facility] ANTICOAG THERAPY [id number] 03/27/2014 12:45:00 03/27/2014 23:59:59 CLS Outpatient RICHARDSON SHANNON, SIMON Virgen Via [facility] ANTICOAG THERAPY [id number] 07/01/2017 17:07:00 ACT Inpatient BRITTANY SMITH MD Via [facility] 4TH ALCOHOL INTOXICATION. [id number] 09/16/2011 08:30:00 Document Registration
== END 2017-07-02 13:51 | disposition home or self-care (01) ==
LOC: EDUNIT# 15:02 → ER 15:04 → 4TH 17:07 → UNDOADMOB 17:07 → 4TH 18:00 → UNDODISOB 07-02 14:05
PROVIDERS: ADMIT Internal Medicine; ATTEND Internal Medicine
DX: F10.229 Alcohol dependence with intoxication, unspecified (principal); Y90.8 Blood alcohol level of 240 mg/100 ml or more; F11.20 Opioid dependence, uncomplicated; I10 Essential (primary) hypertension; M54.9 Dorsalgia, unspecified; G89.29 Other chronic pain; F41.9 Anxiety disorder, unspecified; F32.9 Major depressive disorder, single episode, unspecified; F17.210 Nicotine dependence, cigarettes, uncomplicated; E66.9 Obesity, unspecified; Z68.41 Body mass index [BMI] 40.0-44.9, adult; Z79.899 Other long term (current) drug therapy
CPT/HCPCS: 36415; 71045; 80053; 80306; 80320; 80329; 81002; 85025; 94760; 96360; G0378